=== PATIENT | male | born 1955 | race Caucasian/White ===

== ENCOUNTER 2017-01-14 14:39 | Day surgery (SDC) | payer SELFPAY ==
[~2017-01-14] VITALS: Ht 198.1 cm; Wt 78.0 kg
[~2017-01-14 14:39] MED LIST: ALBU18HF INH; FUR20 PO; NDL40T PO; NYST15OI TP; PANT40TA3 PO; SPIR50TA2 PO
[2017-01-14] MEDS ORDERED: Propofol 10,000 mCg/mL 20 mL Inj ONE (14:40)
[2017-01-14] MEDS ORDERED: fentaNYL-PF 50 mCg/mL 2 mL Inj ONE (14:40)
[2017-01-14] MEDS ORDERED: Ketamine 10 mg/mL 20 mL Inj ONE (14:40)
[2017-01-14 14:53] VITALS: BP 126/69; PULSE 56; RESP 16; O2SAT 100
--- NOTE | 2017-01-14 15:15 | PCM.HPANE ---
Patient Data Date of Service: Jan 14, 2017 Surgeon Admitting Provider: Attending Provider:Mary Beth Barkley MD Primary Care Physician:Mihai Crouch MD Other Provider:Rob Pierson Anesthesia Reason for Visit Iron Deficiency Anemia Ht/WT & BMI Height (Feet): 6 Height (Inches): 6 Weight (Kilograms): 78 Body Mass Index 19.00 Allergies Coded Allergies: No Known Allergies (Verified Allergy, Unknown, 04/26/16) Past Anesthesia History Anesthesia History: Denies:: Abnormal Airway, Anesthesia Reactions, Difficult Intubation, Fam Anesthesia Reaction, Fam Malignant Hypertherm, Malignant Hyperthermia Diabetes History Hx Diabetes?: No MRSA MRSA: No Medications Blood Thinner: Aspirin Home Meds Incl Beta Thomas: Yes Date Beta Thomas Taken: Jan 14, 2017 Time Beta Thomas Taken: 0600 Active Scripts Furosemide 20 Mg Tab40 Mg PO DAILY #30 TABLET Ref 0 Prov:Gordy Lay MD 04/29/16 Nadolol (Corgard)40 Mg Tab40 Mg PO HS #28 TAB Ref 2 Prov:Rolan Strong DO 01/25/16 Reported Medications Nystatin/Triamcin (Nystatin-Triamcinolone Ointm)15 Gm Oint...g.15 Gm TP BID 01/13/17 Albuterol Sulfate (Ventolin HFA Inhaler)200 Puff/18 Gm Inhaler2 Puff INH Q4 PRN For Wheezing #1 INHALER Ref 0 01/13/17 Spironolactone 50 Mg Ektcso65 Mg PO DAILY #30 TABLET Ref 0 02/26/[address] 40 Mg Tablet.dr40 Mg PO DAILYAC #30 Ref 2 Prov:Rolan Strong DO 01/25/16 History History of ENT Problems?: Yes HEENT History: Positive for:: Dysphagia (HX. LOTS OF CLEAR PHLEGM) Sinus Problem (seasonal allergies, post-nasal drip) Denies:: Abnormal Airway Cataracts Difficult Intubation Hearing Problem Denture Type: None Teeth Condition: Within Normal Limits Hx of Heart Problems?: Yes Cardiovascular History: Positive for:: Chest Pain Edema (BLE) Hypertension Denies:: AICD Cardiac Surgery Congestive Heart Failure Heart Murmur Irregular Heartbeat Pacemaker Thrombophlebitis Valvular Heart Disease Hx of Respiratory Problem?: Yes Respiratory History: Positive for:: Asthma Dyspnea Emphysema Hemoptysis (HX) Denies:: COPD Chest Surgery Cough Pneumonia Tuberculosis Hx Neurologic Problems?: No Neurological History: Positive for:: Dizziness (current admission) Denies:: Alzheimer's Disease CVA Dementia Headaches Parkinson's Disease Seizures Hx of GI Problems?: Yes Hx of Problems?: No Genitourinary History: Denies:: HX of Hemodialysis Kidney Stones Urinary Tract Infection HX of Peritoneal Dialysis: No Male Hx: Denies:: Prostate Problems Scrotal Mass Testicular Surgery Hx Musculoskeletal Problems?: Yes Musculoskeletal History: 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) Musculoskeletal Trauma (1974) Denies:: Joint Replacement Hx of Psycho/Social Problems?: Yes Psycho Social History: Positive for:: Anxiety (panic attacks, NO RECENT ATTACKS) Hx Depression Denies:: Bipolar Disorder Suicide Attempt Hx Surgeries?: Yes (COLONOSCOPY/EGD, RUPTURED VARICES REPAIR) Hx Any Other Health Problems?: Yes Other History: Denies:: Cancer Hospitalization Thyroid Disease History Blood Transfusions: Positive for:: Blood Transfusions Denies:: Blood Transfuse Reaction Hx Diabetes: No Hx Alcohol Use: Yes (ALMOST 1 YEAR SOBRIETY)Hx Substance Use: No Smoking Status: Current Every Day Smoker Heavy Tobacco Smoker Have You Smoked inLast 12 mo: Yes (quit smoking 3 weeks ago per pt ) Stop/Bang Treated for Sleep Apnea?: No Do You Have a CPAP Machine?: No S-Snoring: Do You Snore Loudly: Yes T-Tired: feel tired, fatigued: Yes O-Obsered: Observed not breath: No P-Blood Pressure: treated: Yes B- Body Mass Index > 35 kg/m2: No A- Age over 50: Yes N- Neck Large Circumference: No G- Gender Male: Yes ROWAN Total Score: 5 ROWAN Category 4 OutPt Procedure: Yes Risk Assessment Category Category 1A: Patient has history of documented sleep apnea, and HAS NOT received any narcotic, sedative or anesthesia administration during this stay. Category 1B: Patient has history of documented sleep apnea, and HAS received any narcotic , sedative or anesthesia administration during this stay Category 2: Patient has SUSPECTED Obstructive Sleep Apnea, and HAS received any narcotic , sedative or anesthesia administration during this stay. Category 3: Patient has SUSPECTED Obstructive Sleep Apnea and HAS NOT received narcotic, sedative or anesthesia administration during this stay. Category 4: Outpatient in Procedural Areas with known sleep apnea or who screen positive for High Risk via the STOP/BANG questionnaire. Exam Exam Vital Signs Vital Signs Date Time Temp Pulse Resp B/P Pulse Ox O2 Delivery O2 Flow Rate FiO2 01/14/17 14:53 36.4 56 16 126/69 100 Room Air General Appearance: Alert, Oriented X3, Cooperative, No Acute Distress HEENT/AIRWAY: MP 1 Lungs: Clear to Auscultation, Normal Air Movement Heart: Exam Unremarkable, Regular Rate/Rhythm, No Murmurs/Rubs/Gallops Plan Impression Patient chart reviewed, patient interviewed and anesthestic plan with risks, benefits, and alternatives discussed, and informed consent obtained. NPO per Anesth. Guidelines: Yes ASA Physical Status: ASA3 Severe Disease Anesthetic Plan: MAC Bene/Risks/Altern/Consents: Yes HP Complete Prior to Induction: Yes Miller Zimmerman MD Jan 14, 2017 15:15
[2017-01-14] MEDS ORDERED: Lactated Ringer's 1,000 ML IV ONE ×4 (15:22)
[2017-01-14 15:59] VITALS: BP 103/66; PULSE 65; RESP 16; O2SAT 98
[2017-01-14] MEDS ORDERED: Lactated Ringer's 1,000 ML IV SCH (15:59)
[2017-01-14] MEDS ORDERED: Lactated Ringer's 500 ML IV PRN (15:59)
--- NOTE | 2017-01-14 15:59 | PCM.ANEP1 ---
Post Anesthesia PACU Phase 1 Assessment Date of Service: Jan 14, 2017 Vital Signs 103/66 66 16 98% RA Anesthetic Administered: MAC Level of Alertness: Awake, talking BRANTLEY's with Equal Strength: Yes Pain: No Nausea or Vomiting: No CV Function & Hydration Stable: Yes Airway Device: Oxygen Delivery: Room Air Lungs: Clear to Auscultation, Normal Air Movement PACU Phase 2 Assessment Complications: No Follow up Care: No Patient Instructions Provided: Yes Miller Zimmerman MD Jan 14, 2017 15:59
[2017-01-14] MEDS ORDERED: Ondansetron 2 mg/mL 2 mL Inj IVPUSH PRN (16:00)
[2017-01-14] MEDS ORDERED: MetoCLOpramide 5 mg/mL 2 mL Inj IVPUSH PRN (16:00)
[2017-01-14] MEDS ORDERED: Atropine 0.4 mg/mL Inj IVPUSH PRN (16:00)
[2017-01-14 16:09] VITALS: BP 109/59; PULSE 57; RESP 16; O2SAT 93
[2017-01-14 16:19] VITALS: BP 123/73; PULSE 85; RESP 16; O2SAT 100
--- NOTE | 2017-01-14 18:33 | ENDO ---
[address] [address] ENDOSCOPY PROCEDURE PATIENT: DEEP SHERMAN : 1955 MR#: [id number] ADMIT: 01/14/2017 JOB ID: [id number] DATE: 01/14/2017 PROCEDURE: Esophagogastroduodenoscopy (EGD). INDICATION: Iron deficiency anemia. ANESTHESIA: Please see Dr. Miller Zimmerman's anesthesia report for details regarding ASA classification, Mallampati score, and medications. INSTRUMENT USED: GIF H 180 J. PROCEDURE DETAILS: After informed consent was obtained, the patient was brought into the GI suite, where he was placed on oxygen via nasal cannula and monitored with continuous pulse oximeter, telemetry, and blood pressure monitoring. A time-out was performed, then he was placed in the left lateral decubitus position and medications were administered for sedation. A bite block was placed. The standard EGD scope was inserted through the bite block and advanced under direct visualization to the second portion of the duodenum without difficulty. FINDINGS: 1. In the duodenal bulb the mucosa had a slightly friable appearance. 2. Normal-appearing pylorus. In the antrum there was erythema suggestive of gastritis. A single biopsy was obtained to evaluate for H. pylori. 3. The remainder of the gastric exam was otherwise unremarkable. Retroflexed views in the gastric body revealed a normal-appearing cardia and fundus. 4. In the distal esophagus there were small esophageal varices that flattened out with insufflation. No evidence of recent bleeding or high stigmata lesions at risk for bleeding were noted on the varices. IMPRESSION: 1. Scattered friable duodenal mucosa. 2. Gastritis. 3. Small esophageal varices that flattened out with insufflation. RECOMMENDATIONS: 1. Await rapid H. pylori testing. 2. Proceed to colonoscopy. PROCEDURE PERFORMED: Colonoscopy. INDICATION: Iron deficiency anemia. Please see above for ASA classification, Mallampati score, and medications. INSTRUMENT USED: PCF H 190 AL PREPARATION QUALITY: Fair. PROCEDURE DETAILS: After completion of the EGD exam, the patient was turned and a digital rectal exam was performed which was unremarkable. The colonoscope was then inserted into the rectum and advanced under direct visualization to the cecum, which was identified by the presence of the ileocecal valve and appendiceal orifice. Once the cecum was reached, the terminal ileum was intubated, which was identified by the presence of the ileocecal valve and villous appearing mucosa of the terminal ileum. From the terminal ileum the colonoscope was then withdrawn back into the rectum as the mucosa and lumen were examined. In the rectum, retroflexion was performed. Following retroflexion, the remaining air in the rectum was suctioned and the procedure was completed. FINDINGS: 1. In the proximal transverse colon there was an approximately 6-7 mm focal area of a thickened fold. The fold was friable and was erythematous and slightly edematous. The appearance was not consistent with a polyp, however more consistent with focal colitis. The thickened area was completely removed with cold biopsy forceps. Yuly ink was injected distal to and proximal to the thickened fold. 2. Scattered diverticula were seen throughout the left side of the colon. IMPRESSION: 1. Focal friable thickened fold in the ascending colon. 2. Sigmoid diverticulosis. RECOMMENDATIONS: 1. Await biopsy results. 2. Avoid NSAIDs. 3. Continue PPI daily. 4. Follow up in GI Clinic. COMPLICATIONS: None. ESTIMATED BLOOD LOSS: Less than 10 mL.
--- NOTE | 2017-01-20 11:22 | PATH ---
SURGICAL PATHOLOGY Attending Physician:Trina Verdin CASE STATUS: Signed Out PATIENT NAME: DEEP SHERMAN PID: [id number] : 1955 DATE COLLECTED:01/14/2017 00:00 SPECIMEN: Colon, Biopsy CLINICAL HISTORY: 1. ASCENDING COLON BIOPSY OF THICKENED FOLD FINAL DIAGNOSIS: Ascending Colon Biopsy of Thickened Fold: Diffuse chronic active colitis with multiple areas of ulceration. Negative for dysplasia and malignancy. Negative for granulomas. Comment: Although not specific, these changes are consistent with primary inflammatory bowel disease. Suggest clinical correlation. ICD10: K51.9 GROSS DESCRIPTION: The specimen is received in one formalin filled container labeled with the patient's name, sublabeled "ascending colon biopsy of thickened fold" and consists of multiple tiny portions of tissue which aggregate to 0.5 x 0.5 x 0.3 CM. The specimen is filtered and entirely submitted in one cassette. 01/15/2017 [facility] ICD-9 CODES: CPT CODES: 1: 36623 Electronically Signed Out Arturo Wang MD [facility] [address], [place] [address] Technical component performed at [facility], [facility] [address], [address]
== END 2017-01-14 23:59 | disposition home or self-care (01) ==
LOC: END 14:39
PROVIDERS: ATTEND Internal Medicine Gastroenterology
DX: K57.30 Diverticulosis of large intestine without perforation or abscess without bleeding (principal); K52.89 Other specified noninfective gastroenteritis and colitis; I85.00 Esophageal varices without bleeding; D50.9 Iron deficiency anemia, unspecified; I10 Essential (primary) hypertension; E78.5 Hyperlipidemia, unspecified; K70.30 Alcoholic cirrhosis of liver without ascites; R73.01 Impaired fasting glucose; D69.6 Thrombocytopenia, unspecified; J45.909 Unspecified asthma, uncomplicated; F41.8 Other specified anxiety disorders; F10.21 Alcohol dependence, in remission; Z79.82 Long term (current) use of aspirin; Z87.891 Personal history of nicotine dependence
CPT/HCPCS: 43239; 45380; 45381; J3010; J7120